=== PATIENT | female | born 1990 | race Caucasian/White ===

== ENCOUNTER 2018-05-03 05:30 | Emergency (ER) | payer BC, SELFPAY ==
[2018-05-03 05:36] VITALS: BP 121/64; PULSE 107; RESP 18; TEMP 38.2; O2SAT 96
--- NOTE | 2018-05-03 05:50 | ED.FEVER ---
HPI - Fever General Chief Complaint: Abdominal Pain Stated Complaint: Fever/ Abd Pain Time Seen by Provider: 05/03/18 05:42 Source: patient Mode of arrival: ambulatory Limitations: no limitations History of Present Illness HPI Narrative: Patient is a 28-year-old female who presents with fever for the last 2 days. She has been visiting from [place]. She says 2 weeks ago she was treated for mastitis when she had some mild breast pain but she was having fever than as well. She now is having more abdominal pain feeling nauseated occasional vomiting. she has had a few episodes of diarrhea but nonbloody. she does have some left flank pain. But no dysuria. she is currently breast-feeding MD complaint: fever Onset (ago): day(s) (2) Related Data Previous Rx's Medication Instructions Recorded ondansetron [Zofran ODT] 4 mg PO Q6-8H PRN #14 tab 05/03/18 Allergies Allergy/AdvReac Type Severity Reaction Status Date / Time No Known Drug Allergies Allergy Verified 05/03/18 06:21 Review of Systems Review of Systems GENERAL: Fever, see HPI HEENT: Denies sinus pain, ear pain, sore throat, difficulty swallowing, neck pain RESPIRATORY: Denies dyspnea, cough, wheezing, hemoptysis, sputum. CARDIOVASCULAR: Denies chest pain, palpitations, orthopnea, edema GASTROINTESTINAL: see HPI : Denies dysuria, frequency, incontinence, hematuria, urinary retention, flank pain. MUSCULOSKELETAL: Denies weakness, joint pain, or bony pain SKIN: No rash, no erythema, no pruritus NEUROLOGIC: Denies weakness, dizziness, headache, numbness, change in speech, confusion PSYCHIATRIC: No concerning psychosocial issues. 12 point review of systems is negative except for those stated above and HPI Exam Initial Vital Signs Initial Vital Signs: Vital Signs Temperature 100.8 F H 05/03/18 05:36 Pulse Rate 107 H 05/03/18 05:36 Respiratory Rate 18 05/03/18 05:36 Blood Pressure 121/64 H 05/03/18 05:36 Pulse Oximetry 96 05/03/18 05:36 GENERAL: [Well-appearing, well-nourished] and in [no acute] distress. HEENT: Head atraumatic,EOMI, pupils reactive, face symmetric, moist mucous membranes CARDIOVASCULAR: Regular rate and rhythm without murmurs, rubs or gallops. RESPIRATORY: Breath sounds equal bilaterally, no wheezes rales or rhonchi. ABDOMEN: Soft, mild diffuse tenderness without guarding or rebound negative Hughes sign no right lower quadrant pain : left CVA tenderness EXTREMITIES: Normal range of motion, no clubbing or edema. Neurovascularly intact NEUROLOGICAL: Alert and oriented x4.Normal gait and speech. SKIN: Warm, dry, no laceration, no petechiae, no rashes or lesions. Course Orders Ordered: ED Orders 05/03/18 05:48 Complete Blood Count AUTO DIFF Stat Comprehensive Metabolic Panel Stat Lactate (Lactic Acid) Stat Lipase Stat Urine Microscopic Stat 05/03/18 06:38 Blood Culture Stat Discontinued Medications Sodium Chloride (Normal Saline 0.9%) 1,000 mls @ 1,000 mls/hr IV BOLUS ONE Stop: 05/03/18 06:54 Last Admin: 05/03/18 06:02 Dose: 1,000 mls/hr Ketorolac Tromethamine (Toradol) 30 mg IV NOW ONE Stop: 05/03/18 05:56 Last Admin: 05/03/18 06:03 Dose: 30 mg Ondansetron HCl (Zofran) 4 mg IV NOW ONE Stop: 05/03/18 05:56 Last Admin: 05/03/18 06:03 Dose: 4 mg Pantoprazole Sodium (Protonix) 40 mg IV NOW ONE Stop: 05/03/18 05:56 Last Admin: 05/03/18 06:03 Dose: 40 mg Vital Signs - 8 hr 05/03/18 05:36 05/03/18 05:55 05/03/18 06:21 Temperature 100.8 F H 100.8 F H Pulse Rate 107 H 107 H 89 Respiratory Rate 18 18 18 Blood Pressure 121/64 H Blood Pressure [Right Arm] 121/64 H 114/63 Pulse Oximetry 96 96 96 05/03/18 06:43 Temperature Pulse Rate 93 H Respiratory Rate Blood Pressure Blood Pressure [Right Arm] 103/91 H Pulse Oximetry 97 MDM - Fever Lab Data Result diagrams: 05/03/18 05:48 05/03/18 05:48 Lab Results 05/03/18 05/03/18 05/03/18 Range/Units 05:48 05:48 05:48 WBC 8.1 (4.5-11.0) X10^3/uL RBC 4.52 (4.0-5.2) X10^6/uL Hgb 13.2 (12.0-16.0) g/dL Hct 38.1 (36-46) % MCV 84.4 (80-100) fL MCH 29.1 (26-34) PG MCHC 34.5 (30-36) % RDW 14.7 (11.6-14.8) % Plt Count 277 (150-400) X10^3/uL Neut % (Auto) 76.6 H (50-75) % Lymph % (Auto) 15.6 L (25-40) % Bleck[place] % (Auto) 7.2 (3-14) % Eos % (Auto) 0.0 L (2-4) % Baso % (Auto) 0.6 (0-2) % Neut # (Auto) 6200 H (0426-2236) /uL Sodium 141 (137-145) mmol/L Potassium 3.3 L (3.4-5.1) mmol/L Chloride 103 (98-107) mmol/L Carbon Dioxide 25 (22-32) mmol/L BUN 11 (7-17) mg/dL Creatinine 1.00 (0.52-1.04) mg/dL Estimated GFR > 60.0 (>60) mL/min BUN/Creatinine Ratio 11.0 (6-22) Glucose 97 (70-100) mg/dL Lactate 0.7 (0.7-2.1) mmol/L Calcium 9.0 (8.4-10.2) mg/dL Total Bilirubin 0.3 (0.2-1.3) mg/dL AST 26 (14-36) IU/L ALT 33 (9-52) IU/L Alkaline Phosphatase 103 (38-126) U/L Total Protein 8.1 (6.3-8.2) g/dL Albumin 4.2 (3.5-5.0) g/dL Globulin 3.9 (1.7-4.1) g/dL Albumin/Globulin Ratio 1.1 (1.0-2.8) Lipase 39 (23-300) U/L Urine RBC (0-5/HPF) Urine WBC (0-5/HPF) Ur Squamous Epith Cells Urine Bacteria (None) Ur Culture Indicated? Micro UA Comment 05/03/18 Range/Units 05:48 WBC (4.5-11.0) X10^3/uL RBC (4.0-5.2) X10^6/uL Hgb (12.0-16.0) g/dL Hct (36-46) % MCV (80-100) fL MCH (26-34) PG MCHC (30-36) % RDW (11.6-14.8) % Plt Count (150-400) X10^3/uL Neut % (Auto) (50-75) % Lymph % (Auto) (25-40) % [place] % (Auto) (3-14) % Eos % (Auto) (2-4) % Baso % (Auto) (0-2) % Neut # (Auto) (8190-7770) /uL Sodium (137-145) mmol/L Potassium (3.4-5.1) mmol/L Chloride (98-107) mmol/L Carbon Dioxide (22-32) mmol/L BUN (7-17) mg/dL Creatinine (0.52-1.04) mg/dL Estimated GFR (>60) mL/min BUN/Creatinine Ratio (6-22) Glucose (70-100) mg/dL Lactate (0.7-2.1) mmol/L Calcium (8.4-10.2) mg/dL Total Bilirubin (0.2-1.3) mg/dL AST (14-36) IU/L ALT (9-52) IU/L Alkaline Phosphatase (38-126) U/L Total Protein (6.3-8.2) g/dL Albumin (3.5-5.0) g/dL Globulin (1.7-4.1) g/dL Albumin/Globulin Ratio (1.0-2.8) Lipase (23-300) U/L Urine RBC 1-5/hpf (0-5/HPF) Urine WBC 1-5/hpf (0-5/HPF) Ur Squamous Epith Cells 0-1 /hpf Urine Bacteria Few (2-10) H (None) Ur Culture Indicated? Cult not indicated Micro UA Comment Not Reportable MDM Narrative Medical decision making narrative: She appears nontoxic, no sign of obvious infection. Symptoms clinically correlate with gastroenteritis with nausea and diarrhea. I discussed all findings with the patient , Education has been performed regarding treatment plan, diagnosis, warning signs and symptoms and all concerns have been addressed. Verbally agree with and understood all of the above. Discharge Plan Departure Patient Disposition: Home, Self-Care Clinical Impression: Gastroenteritis Instructions: DI for Viral Gastroenteritis -- Adult Activity Restrictions/Additional Instructions: 1) You have been diagnosed with gastroenteritis 2) What to do: Drink frequent but small amounts of fluids. I recommend Gatorade or a Gatorade-like product, as it has small amounts of sugar and salts that improve fluid retention. 3) Take medications as directed 4) Follow up with your primary care provider in 2-3 days [and follow up with ortho, urology etc] 5) Return to ER if you should have any new or worsening symptoms such as, unable to hold down fluids despite use of anti-nausea medications and the small volume oral rehydration strategy. Prescriptions: New ondansetron [Zofran ODT] 4 mg tablet,disintegrating 4 mg PO Q6-8H PRN (Reason: nausea and vomiting) Qty: 14 RF: 0
[2018-05-03 05:55] VITALS: BP 121/64; PULSE 107; RESP 18; TEMP 38.2; O2SAT 96
[2018-05-03] MEDS: SODIUM CHLORIDE 0.9% 1,000 ML 1000 ML IV (06:02)
[2018-05-03] MEDS: KETOROLAC 60 MG/2 ML VIAL 30 MG IV (06:03)
[2018-05-03] MEDS: ONDANSETRON 4 MG/2 ML INJ IV (06:03)
[2018-05-03] MEDS: PANTOPRAZOLE 40 MG VIAL IV (06:03)
[2018-05-03 06:14] LABS: Add Manual Diff / Slide Review NO; Basophils Percent Auto 0.6 % (0-2); Hematocrit 38.1 % (36-46); Hemoglobin 13.2 g/dL (12.0-16.0); Lymphocytes Percent Auto 15.6 % (25-40); Mean Corpuscular HGB Conc 34.5 % (30-36); Mean Corpuscular Hemoglobin 29.1 PG (26-34); Mean Corpuscular Volume 84.4 fL (80-100); Monocytes Percent Auto 7.2 % (3-14); Neutrophils Absolute Auto 6200 /uL (3000-5900); Neutrophils Percent Auto 76.6 % (50-75); Platelet Count 277 X10^3/uL (150-400); Red Blood Cell Count 4.52 X10^6/uL (4.0-5.2); Red Cell Distribution Width 14.7 % (11.6-14.8); White Blood Cell Count 8.1 X10^3/uL (4.5-11.0)
[2018-05-03 06:21] VITALS: BP 114/63; PULSE 89; RESP 18; O2SAT 96
[2018-05-03 06:23] LABS: Alanine Aminotransferase 33 IU/L (9-52); Albumin 4.2 g/dL (3.5-5.0); Albumin Globulin Ratio 1.1 (1.0-2.8); Alkaline Phosphatase 103 U/L (38-126); Aspartate Aminotransferase 26 IU/L (14-36); Bilirubin Total 0.3 mg/dL (0.2-1.3); Blood Urea Nitrogen 11 mg/dL (7-17); Carbon Dioxide 25 mmol/L (22-32); Chloride 103 mmol/L (98-107); Estimated Glomerular Filt Rate > 60.0 mL/min (>60); Globulin 3.9 g/dL (1.7-4.1); Glucose 97 mg/dL (70-100); HEMOLYSIS < 15 (0-50); Lipase 39 U/L (23-300); Potassium 3.3 mmol/L (3.4-5.1); Sodium 141 mmol/L (137-145); Total Protein 8.1 g/dL (6.3-8.2)
[2018-05-03 06:24] LABS: Lactate (Lactic Acid) 0.7 mmol/L (0.7-2.1)
[2018-05-03 06:30] LABS: Bacteria Urine Few (2-10); Culture Indicated Urine Cult Not Indicated; RBC Urine 1-5/HPF (0-5/HPF); Squamous Epithelial Cell Urine 0-1 /HPF; WBC Urine 1-5/HPF (0-5/HPF)
[2018-05-03 06:43] VITALS: BP 103/91; PULSE 93; O2SAT 97
[2018-05-03 07:30] VITALS: BP 101/64; PULSE 64; RESP 20
[2018-05-03 07:49] VITALS: BP 102/64; PULSE 62; RESP 18; TEMP 36.9; O2SAT 95
== END 2018-05-03 07:49 | disposition home or self-care (01) ==
PROVIDERS: Emergency Provider Emergency Medicine
DX: K52.9 Noninfective gastroenteritis and colitis, unspecified (principal)
CPT/HCPCS: 36415; 36591; 80053; 81003; 81015; 81025; 83605; 83690; 85025; 87040; 96361; 96374; 96375; 99283; C9113; J1885; J2405